=== PATIENT | male | born 2000 | race African-American/Black ===

== ENCOUNTER 2022-11-17 21:43 | Emergency (ER) | payer MEDICAID, SELFPAY ==
--- NOTE | 2022-11-17 21:45 | DI.CT_ITS ---
Exam(s) CT HEAD WO EXAM: CT HEAD WO CLINICAL HISTORY: headache. TECHNIQUE: Imaging Protocol: Axial computed tomography images with coronal and sagittal reformatted images were created and reviewed COMPARISON: No exams were available for comparison FINDINGS: Ventricles and Extra axial spaces: Normal in size and morphology for the patient's age. Hemorrhage: None. Cerebral parenchyma: Normal. Midline shift: None. Brainstem/Cerebellum: Normal. Calvarium: Normal. Visualized Paranasal sinuses/Mastoids: Clear. Soft Tissues: Unremarkable. IMPRESSION: No acute intracranial process. RADIATION DOSE DELIVERED: 794.69mGy.cm Total DLP DATA REPOSITORY: All CT scans at this facility are submitted to the National Radiology Data Registry (NRDR) Dose Index Registry (DIR) with the [employer] ([employer]). RADIATION OPTIMIZATION: All CT scans at this facility use at least one of these dose optimization te chniques: automated exposure control; mA and/or kV adjustment per patient size (includes targeted exa ms where dose is matched to clinical indication); or iterative reconstruction.
--- NOTE | 2022-11-17 21:45 | RT.EKG_ITS ---
APPROVED REPORT Exam: Resting ECG Reason for Exam: dizzy Patient Location: E HR:68 bpm ECG Measurements Heart Rate 68 AXIS DE 170 P 42 QRSd 81 QRS 29 QT 347 T 34 QTc 371 Conclusion Sinus rhythm...normal P axis, V-rate 60- 99
[2022-11-17 21:49] VITALS: BP 158/81; PULSE 80; RESP 19; TEMP 36.6; O2SAT 100
--- NOTE | 2022-11-17 21:59 | ED.GENADUL_ITS ---
Discharge Plan Disposition Patient Disposition: Home Condition: Stable Discharge Details Clinical Impression: Headache, Dizziness Primary Care Provider: Unknown,Unknown ED Provider: Oracio Calderón Home Meds and New Rx's Prescriptions: Continued melatonin 5 MG tablet 5 mg PO HS loratadine [Claritin] 10 mg Tablet 10 mg PO DAILY PRN (Reason: Allergy Symptoms) Discharge Instructions Instructions: Dizziness (ED), General Headache (ED) Additional Instructions: your ekg and troponin did not show concerning findings follow up with your primary care provider within 1-2 weeks if you feel more ill, have severe worsening symptoms or new symptoms such as difficulty breathing return to the emergency department Stand Alone Forms: Work Release Medical Decision Making 22 yo male with no chronic medical problems comes in with his mother with concerns for dizziness and headache. She works the graveyard shift and states was taking a nap. He woke up from the nap less then an hour ago and felt dizzy and had a pounding headache. He laid down, felt better and his mother brought him here. He states he has mild headache now but improved. He is caox4 speaking clearly in no distress, normal gait, no focal motor or sensation deficits, CN II-XII intact, nih of 0 and reassuring HINTS exam. He has no chest pain, dyspnea, fevers, chills, neck stifness. No meningismus on exam. Clear lungs. He appears well in no distress. Unclear etiology for his symptoms, suspect tension headache vs migraine, will obtain ecg and given the headache a ct of his head. No infectious symptoms and no findings on exam to suggest lineworker infection. pt asymptomatic, ambulatory with normal gait, ecg and ct unremarkable. Given he is at his baseline, within 6 hours of onset without hemorrhage do not feel further testing indicated. Advised to f/u with pcp and return precautions given Differential Diagnosis Differential Diagnosis: vertigo, tension headache, migraine Imaging Data Radiologic Study: Attestation: I personally reviewed and interpreted this imaging study as follows: Imaging: CT Scan Radiologist's impression: no acute findings ECG Data Attestation: I personally reviewed and interpreted this ECG (s) as follows: Prior ECG tracings: not available for review Interpretation: sinus rate of 68, pr 170, no acute ischemic findings HPI General Mode of arrival: ambulatory . Date/Time Provider Initiated Documentation: 11/17/22 21:47 . Limitations to Documentation: no limitations . Information obtained by: patient . History of Present Illness 22 year old M presents to the emergency department with the chief complaint of headache, described as moderate, Patient started experiencing this hour(s) (1) and it has been now resolved. No relieving factors improve symptom(s), No exacerbating factors reported . Patient notes other (dizziness). Patient did receive the following treatments prior to arrival, none Related Data Home Medications Medication Instructions Recorded Confirmed melatonin 5 mg tablet 5 mg PO HS 03/25/15 11/17/22 loratadine 10 mg tablet (Claritin) 10 mg PO DAILY PRN Allergy Symptoms 11/17/22 11/17/22 Allergies Allergy/AdvReac Type Severity Reaction Status Date / Time No Known Allergies Allergy Unverified 06/20/17 16:23 General Stated Complaint: Dizzy/Sync KRISTIN: 4 Review of Systems All systems reviewed & are unremarkable except as noted in HPI and below Constitutional Constitutional: Denies chills, Denies fever(s) and Denies weakness Cardiovascular Cardiovascular: Denies chest pain and Denies dyspnea Respiratory Respiratory: Denies cough and Denies dyspnea Gastrointestinal Gastrointestinal: Denies abdominal pain and Denies vomiting Musculoskeletal Musculoskeletal: Denies joint swelling Neurologic Neurologic: Denies weakness PFSH All Active Problems (Updated 11/17/22 @ 22:12 by Oracio Calderón MD) Headache (Acute) Dizziness (Acute) Acanthosis nigricans (Acute 07/29/14) BMI (body mass index), pediatric, greater than 99% for age (Acute 07/29/14) Elevated blood pressure reading (Acute 03/25/15) Ingrowing toenail (Acute 04/23/15) Bilateral great toes; status post resection Learning difficulty (Acute 02/27/13) has IEP Routine child health exam (Acute 03/30/14) Medical History (Updated 11/17/22 @ 22:12 by Oracio Calderón MD) ADHD (attention deficit hyperactivity disorder) has IEP Dyslexia Eczema Smoker in home Undescended testicle L REPAIRED Surgical History (Updated 01/09/18 @ 14:33 by [employer]) Repair, Undescended Testicle left Tonsillectomy Family History Mother Essential hypertension Asthma Father Essential hypertension Hyperlipidemia Degenerative arthritis of knees Claudication Asthma Other Diabetes PGM Personal history of malignant neoplasm MGM, PGM- breast cancer Sister Hodgkins lymphoma Asthma Social History Smoking risk assessment performed?: No Do you feel safe in your relationship?: Yes Exam Const General: no acute distress Orientation: alert HENMT Head: normal to inspection Ears: external ears normal General nose exam: external nose normal Mouth: moist mucous membranes Eyes General: appearance normal, both eyes and all related structures Neck Neck: normal visual inspection Resp Effort & Inspection: normal respiratory effort and able to speak in complete sentences Auscultation: clear to auscultation bilaterally Cardio Jugular venous pressure: no JVD Rate: regular rate Heart Sounds: no murmurs Skin General skin exam: no rashes or lesions noted Neuro General: patient alert and patient oriented x3 Extrem General: normal to inspection Psych Mental Status: mental status grossly normal Course Vital Signs Vital signs: Vital Signs Temperature 36.6 C 11/17/22 21:49 Pulse 80 11/17/22 21:49 Respiratory Rate 19 11/17/22 21:49 Blood Pressure 158/81 H 11/17/22 21:49 Pulse Oximetry 100 11/17/22 21:49 Temperature 36.6 C 11/17/22 21:49 Temperature Source Temporal Artery Scan 11/17/22 21:49 Pulse 80 11/17/22 21:49 Respiratory Rate 19 11/17/22 21:49 Blood Pressure 158/81 H 11/17/22 21:49 Blood Pressure Position Sitting 11/17/22 21:49 Pulse Oximetry 100 11/17/22 21:49 Oxygen Delivery Method Room Air 11/17/22 21:49 Oxygen Flow Rate 0 11/17/22 21:49 Pain Level 0 11/17/22 21:49
--- NOTE | 2022-11-17 22:25 | DI.VRAD_ITS ---
PROCEDURE INFORMATION: Exam: CT Head Without Contrast Exam date and time: 11/17/2022 10:17 PM Age: 22 years old Clinical indication: Pain; Headache not specified TECHNIQUE: Imaging protocol: Computed tomography of the head without contrast. Radiation optimization: All CT scans at this facility use at least one of these dose optimization techniques: automated exposure control; mA and/or kV adjustment per patient size (includes targeted exams where dose is matched to clinical indication); or iterative reconstruction. COMPARISON: No relevant prior studies available. FINDINGS: Brain: Cerebrum is unremarkable. Quigley-white matter differentiation is intact. No mass lesion is seen. No mass effect or midline shift. Thalamus is unremarkable. No evidence of hemorrhage. Cerebellum is unremarkable. No posterior fossa mass lesion or mass effect. No pathologic edema. No evidence of cerebellar hemorrhage. Brainstem is unremarkable. No evidence of pontine hemorrhage. No mass effect on the brainstem. Cerebral ventricles: No ventriculomegaly. Paranasal sinuses: Visualized sinuses are unremarkable. No fluid levels. Mastoid air cells: Visualized mastoid air cells are well aerated. Bones/joints: Unremarkable. No acute fracture. Soft tissues: Unremarkable. IMPRESSION: No evidence of pathology. Dictated and Authenticated by: Cheri Cid MD. Ordering:VICENTE Narayanan MD
[2022-11-17 22:35] VITALS: RESP 15
== END 2022-11-17 22:40 | disposition home or self-care (01) ==
PROVIDERS: Emergency Provider Emergency Medicine
DX: R51.9 Headache, unspecified (principal); R42 Dizziness and giddiness
CPT/HCPCS: 93005; 99284; 70450; 93010; 99283